=== PATIENT | male | born 1995 | race Caucasian/White ===

== ENCOUNTER 2019-10-14 07:22 | Outpatient (CLI) | payer OTHER, SELFPAY ==
[2019-10-16 05:36] LABS: SARS-CoV-2 RNA Undetected (Undetected); SARS-CoV-2 Specimen Source Nasopharynx
== END 2019-10-14 07:42 ==
PROVIDERS: PCP Family Medicine; Visit Provider Family Medicine
DX: Z11.59 Encounter for screening for other viral diseases (principal)
CPT/HCPCS: U0003

== ENCOUNTER 2024-04-03 15:47 | Outpatient (CLI) | payer OTHER, SELFPAY ==
--- NOTE | 2024-04-03 13:45 | DI.RAD_ITS ---
Exam(s) XR KNEE RT 3V AP,LAT,SANDY EXAM: XR KNEE RT 3V AP,LAT,SANDY CLINICAL HISTORY: RIGHT KNEE PAIN. TECHNIQUE: 2D digital imaging was performed. Three views. COMPARISON: No exams were available for comparison FINDINGS: BONES: No acute fracture is present. No bony destructive lesion is seen. JOINTS: The knee is normally aligned. No joint effusion is seen. The joint spaces are maintained. Minimal periarticular spurring. There are 1 or 2 adjacent bony densities projecting posterior to the tibial spines. The larger measures 22 x 12 millimeters. The smaller measures 9 by 7 millimeters. SOFT TISSUE: Normal. IMPRESSION: Two adjacent posterior joint space loose bodies. DATA REPOSITORY: RADIATION DOSE DELIVERED:
== END 2024-04-03 15:48 | disposition home or self-care (01) ==
LOC: DIORS 15:48
PROVIDERS: PCP Nurse Practitioner Family; Visit Provider Student in an Organized Health Care Education/Training Program
DX: M85.861 Other specified disorders of bone density and structure, right lower leg (principal)
CPT/HCPCS: 73562

== ENCOUNTER 2024-04-15 01:29 | Outpatient (CLI) | payer OTHER, SELFPAY ==
--- NOTE | 2024-04-15 07:00 | DI.MRI_ITS ---
Exam(s) MR LOWER JOINT RT WO EXAM: MR LOWER JOINT RT WO CLINICAL HISTORY: R KNEE PAIN,? LATERAL MENISCAL TEAR,INTERNAL DERANGEMENT RT KNEE,M23.91. TECHNIQUE: Multiplanar multisequence MRI was performed. COMPARISON: CR XR KNEE RT 3V AP,LAT,SANDY from 04/03/2024 FINDINGS: BONES: There is no fracture or contusion pattern. JOINTS: A small joint effusion is present. There are 2 adjacent bony densities seen adjacent to the posterior aspect of the medial tibial plateau. There are not surrounded by joint fluid appears to l ie within the root of the medial meniscus. Articular cartilage: Patellofemoral joint: Articular cartilage is unremarkable. Medial femoral tibial joint: Articular cartilage is unremarkable. Lateral femoral tibial joint: Articular cartilage is unremarkable. LIGAMENTS/TENDONS: Anterior Cruciate: Unremarkable. Posterior Cruciate: Unremarkable. Medial Collateral:Unremarkable. Lateral Collateral ligament complex: Unremarkable. Extensor mechanism: Unremarkable. Medial retinaculum: Unremarkable. Lateral retinaculum: Unremarkable. Popliteus: Unremarkable. MENISCI: The medial meniscus no evidence of tear. There are 2 bony densities at the meniscal root consistent with meniscal ossicles. The lateral meniscus is unremarkable. MUSCLES: Unremarkable. SOFT TISSUES: Unremarkable. IMPRESSION: Two adjacent bony densities are noted at the posterior root of the medial meniscus, consistent with m eniscal ossicles. No evidence of meniscal tear. DATA REPOSITORY: CONTRAST MATERIAL: IV Contrast: The Heck and sterile mL of Dotarem contrast administered.
== END 2024-04-15 01:49 ==
PROVIDERS: Visit Provider Student in an Organized Health Care Education/Training Program
DX: M23.91 Unspecified internal derangement of right knee (principal)
CPT/HCPCS: 73721